=== PATIENT | male | born 1995 | race Caucasian/White ===

== ENCOUNTER 2017-04-22 15:07 | Emergency (ER) | payer OTHER ==
[~2017-04-22] VITALS: Ht 172.7 cm; Wt 81.0 kg
[2017-04-22 15:18] VITALS: TEMP 36.8; Ht 172.7 cm; Wt 81.0 kg
--- NOTE | 2017-04-22 16:26 | EMERGENCY ROOM VISIT NOTE ---
ED Visit Note First contact with patient: 15:21 CHIEF COMPLAINT: Left yancey injury during a wrestling match today HISTORY OF PRESENT ILLNESS: Patient is a healthy 21-year-old white male who presents to the emergency department accompanied by his family for evaluation of left lower leg pain after an injury. He is here for a rugby match, he states that he collided with another player. He essentially hit yancey to yancey. He had immediate onset of pain in the left lower leg. He was able to walk off, then sat down. He was splinted by athletic training staff. He has been nonweightbearing using crutches since. Injury occurred about an hour ago. He ibuprofen for his discomfort which she rates the/10. He has a history of a left ankle fracture he does have hardware in the left ankle, but denies that the ankle or knee are painful. No numbness or tingling. REVIEW OF SYSTEMS: Review of systems as per HPI. All other systems reviewed were negative. At least 6 systems reviewed. PMH: Electronic medical records are reviewed and summarized as above/below. See Problem List. SOCIAL HISTORY: Patient is a [employer] student from near [place]. He is here for the match. He does not smoke. PHYSICAL EXAM: Vital Signs: Reviewed Nurse's notes. MENTAL STATUS: Alert, oriented, and cooperative. MUSCULOSKELETAL: The left knee and ankle are normal to inspection and there is no swelling or tenderness of either. There is swelling and tenderness on the anterior aspect of the mid left tibial spine. The skin is intact. There is no deformity or fracture crepitus. Well-healed surgical scars noted over the ankle. The lower extremity is neurovascularly intact. EMERGENCY DEPARTMENT COURSE: X-ray of the tibia/fibula does not show any fractures. Patient was wrapped with an Alonso wrap. He was issued crutches. He was instructed on a weight bear as tolerated gait. Differential diagnosis includes fracture, contusion, hematoma, I do not suspect compartment syndrome. Medication reconciliation: I attest that I have personally reviewed the patient' s current medication list. Blood pressure screening : Patient was found to have normal blood pressure on screening and does not require follow-up. L TIBIA/FIBULA 2 VIEWS ROUTINE CLINICAL HISTORY: 21 years-old Male presenting with LEFT, MID YANCEY PAIN, HIT LEG DURING RUGBY MATCH. TECHNIQUE: Frontal and lateral views of the left lower leg were obtained. COMPARISON: None. FINDINGS: No acute fracture or malalignment. Postsurgical changes of prior transsyndesmotic screw in the distal tibiofibular articulation. Residual orthopedic hardware. Soft tissue swelling in the region of the calf. IMPRESSION: No acute osseous injury. Soft tissue swelling in the region of the calf could represent prominent musculature or intramuscular hematoma. If there is clinical concern, ultrasound could be obtained. Problem List Surgical Problems: (1) History of orthopedic surgery Permanent Comment: Left ankle Status: Resolved Current/Historical Medications No Active Prescriptions or Reported Meds Allergies Coded Allergies: Penicillins (Unverified Allergy, Intermediate, RED MAN SYNDROME, HIVES, ) Vancomycin (Unverified Allergy, Intermediate, RED MAN SYNDROME/HIVES, 04/22) Vital Signs Date Time Temp Pulse Resp B/P (MAP) Pulse Ox O2 Delivery O2 Flow Rate FiO2 04/22/17 16:57 71 16 124/78 99 04/22/17 15:18 36.8 75 16 128/84 99 Room Air Departure Information Impression Primary Impression: Contusion of left leg Prescriptions No Active Prescriptions or Reported Meds Referrals No Doctor, Assigned (PCP) Patient Instructions My [facility] Additional Instructions Ibuprofen(Motrin, Advil) may be used for fever or pain. Use 600mg every six hours as needed. Take with food. Avoid using more than 2400mg in a 24 hour period. Do not use 2400mg per day for more than three consecutive days without physician direction. Prolonged inappropriate use can lead to stomach upset or ulcers. This medication can be taken if you need to drive, work, or perform activities which may be dangerous when taking narcotic pain medication. (AND/OR) Acetaminophen(Tylenol) may be used for fever or pain. Use 1000mg every six hours as needed. Avoid using more than 3000mg in a 24 hour period. This medication can be taken if you need to drive, work, or perform activities which may be dangerous when taking narcotic pain medication. Ice compresses for 20 minutes at a time four times daily for 2-3 days. Use the crutches as instructed. Rest and elevate your injury. Continue current medications. Return to the ER immediately for any numbness, tingling, severe pain, extreme swelling in the extremity or as needed. Followup with your family doctor or orthopedic surgery if no improvement in 5-7 days. Problem Qualifiers Primary Impression: Contusion of left leg Encounter type: initial encounter Qualified Codes: S80.12XA - Contusion of left lower leg, initial encounter
[2017-04-22 16:57] VITALS: BP 124/78; PULSE 71; O2SAT 99
--- NOTE | 2017-04-22 16:59 | DIAGNOSTIC IMAGING REPORT ---
L TIBIA/FIBULA 2 VIEWS ROUTINE CLINICAL HISTORY: 21 years-old Male presenting with LEFT, MID [place] PAIN, HIT LEG DURING RUGBY MATCH. TECHNIQUE: Frontal and lateral views of the left lower leg were obtained. COMPARISON: None. FINDINGS: No acute fracture or malalignment. Postsurgical changes of prior transsyndesmotic screw in the distal tibiofibular articulation. Residual orthopedic hardware. Soft tissue swelling in the region of the calf. IMPRESSION: No acute osseous injury. Soft tissue swelling in the region of the calf could represent prominent musculature or intramuscular hematoma. If there is clinical concern, ultrasound could be obtained. Electronically signed by: Rajeev Arce M.D. 04/22/2017 4:58 PM Dictated Date/Time: 04/22/2017 4:57 PM
== END 2017-04-22 16:55 | disposition home or self-care (01) ==
LOC: C.EDB 15:09 → C.EDD 16:55
DX: S80.12XA Contusion of left lower leg, initial encounter (principal); W50.0XXA Accidental hit or strike by another person, initial encounter